=== PATIENT | female | born 1955 | race African-American/Black ===

== ENCOUNTER 2016-10-21 20:13 | Observation (INO) | payer SELFPAY ==
[~2016-10-21 20:13] MED LIST: AMLO2.5T PO; GLUCTAB PO; MELO15 PO; METH750T2 PO; TOPR100T15 PO; ZOLO50TA PO
[2016-10-21 20:16] VITALS: BP 174/86; PULSE 74; RESP 16; TEMP 98.4; O2SAT 99
[2016-10-21 20:19] VITALS: BP 216/102
--- NOTE | 2016-10-21 21:31 | RADRPT ---
EXAM DATE/TIME: 10/21/2016 21:22 [facility] COMPARISON: No previous studies available for comparison. INDICATIONS : Dizziness, chest pain, and palpitations. MEDICAL HISTORY : None. SURGICAL HISTORY : Heart catheterization. ENCOUNTER: Initial ACUITY: 2 days PAIN SCORE: 3/10 LOCATION: Bilateral upper chest FINDINGS: A single view of the chest demonstrates the lungs to be symmetrically aerated without evidence of mas s, infiltrate or effusion. The cardiomediastinal contours are unremarkable. Osseous structures are intact. CONCLUSION: The lungs are clear. Gustavo Lucio MD on October 21, 2016 at 21:28 Board Certified Radiologist. This report was verified electronically.
[2016-10-21 21:33] LABS: AUTOMATED NEUTROPHIL # 8.8 TH/MM3 (1.8-7.7); BASOPHIL # 0.1 TH/MM3 (0-0.2); BASOPHIL % 0.5 % (0.0-2.0); EOSINOPHIL # 0.4 TH/MM3 (0-0.4); EOSINOPHIL % 2.6 % (0.0-4.0); HEMATOCRIT 39.5 % (35.0-46.0); HEMO FLAGS DIFF FINAL; LYMPH % 29.9 % (9.0-44.0); LYMPHOCYTE # 4.4 TH/MM3 (1.0-4.8); MEAN CELL VOLUME 82.3 FL (80.0-100.0); MEAN CORPUSCULAR HEMOGLOBIN 25.9 PG (27.0-34.0); MEAN CORPUSCULAR HGB CONC 31.4 % (32.0-36.0); MONO % 7.9 % (0.0-8.0); NEUT % 59.1 % (16.0-70.0); PLATELET COUNT 252 TH/MM3 (150-450); RED CELL DISTRIBUTION WIDTH 14.5 % (11.6-17.2); WHITE BLOOD COUNT 14.9 TH/MM3 (4.0-11.0)
--- NOTE | 2016-10-21 21:45 | PD ---
HPI Chief Complaint: Chest Pain Time Seen by Provider: 21:44 Travel History International Travel<30 days: No Contact w/Intl Traveler<30days: No Traveled to known affect area: No History of Present Illness HPI 61-year-old female with history of DM, HTN, HLD, anxiety presents to the ED for evaluation of intermittent left-sided chest pain, radiating to the left shoulder. The patient states this pain has awoken her from sleep several nights this week. She states that this was accompanied by diaphoresis. Each episode lasted approximately 10-20 minutes before resolving spontaneously. She denies accompanying shortness of breath nausea or vomiting. The patient states that she is having difficulties filling her prescriptions due to financial issues and this has caused increased anxiety over the last week as her medications decreased. She admits to perseverating about this issue during the course of the week. She underwent a heart catheter approximately 5 years ago but states that she was unable to follow up with the health therapist due to financial issues. PFSH Past Medical History Asthma: Yes (BY HX ) Anxiety: Yes Heart Rhythm Problems: Yes (PALPITATIONS) Cancer: No Cardiovascular Problems: Yes High Cholesterol: Yes (NEW ONSET NEW RX) Diabetes: Yes Diminished Hearing: No Endocrine: Yes Genitourinary: No Hepatitis: No Hiatal Hernia: No Hypertension: Yes Immune Disorder: Yes (not sure at this time pt is going to be tested for rheumatoid arthritis) Musculoskeletal: Yes (arthritis neck and back problems) Neurologic: No Psychiatric: Yes (pt has a rx for zoloft and takes it occasionally) Reproductive: Yes Respiratory: No Myocardial Infarction: No Thyroid Disease: No Menopausal: Yes : 5 Para: 3 Miscarriage: 0 : 2 Tubal Ligation: Yes Past Surgical History AICD: No Cardiac Surgery: Yes (CARDIAC CATH) Gynecologic Surgery: Yes (d and c tubal) Hysterectomy: Yes Joint Replacement: No Pacemaker: No Social History Alcohol Use: Yes (occasional) Tobacco Use: No Substance Use: No Allergies-Medications (Allergen,Severity, Reaction): Coded Allergies: Penicillin (Verified Allergy, Mild, 10/21/16) RASH Reported Meds & Prescriptions Reported Meds & Active Scripts Active Reported Zoloft (Sertraline HCl) 50 Mg Tab 50 Mg PO DAILY Clonazepam 0.5 Mg Tab 0.5 Mg PO BID Gabapentin 300 Mg Cap 300 Mg PO BID Amlodipine (Amlodipine Besylate) 5 Mg Tab 5 Mg PO DAILY Metoprolol Tartrate 50 Mg Tab 50 Mg PO BID Lisinopril 20 Mg Tab 20 Mg PO DAILY Meloxicam 15 Mg Tab 15 Mg PO DAILY Tramadol (Tramadol HCl) 50 Mg Tab 50 Mg PO Q4H PRN Metformin (Metformin HCl) 500 Mg Tab 500 Mg PO DAILY With a meal Review of Systems Except as stated in HPI: all other systems reviewed are Neg Physical Exam Narrative GENERAL: Well-nourished, well-developed obese black female in no acute distress. SKIN: Focused skin assessment warm/dry. HEAD: Normocephalic. EYES: No scleral icterus. No injection or drainage. NECK: Supple, trachea midline. No JVD or lymphadenopathy. CARDIOVASCULAR: Regular rate and rhythm without murmurs, gallops, or rubs. 2+ DP and radial pulses bilaterally. CHEST: Nontender throughout without deformity or crepitance. No retractions or use of accessory muscles. RESPIRATORY: Breath sounds clear and equal bilaterally. No accessory muscle use. GASTROINTESTINAL: Abdomen soft, non-tender, nondistended. Active bowel sounds. MUSCULOSKELETAL: No cyanosis, or edema. No tenderness to palpation over the left shoulder. Patient is ambulatory and moves 3 extremities spontaneously. BACK: Nontender without obvious deformity. No CVA tenderness. Data Data Last Documented VS Vital Signs Date Time Temp Pulse Resp B/P Pulse Ox O2 Delivery O2 Flow Rate FiO2 10/21/16 21:46 68 18 99 10/21/16 20:19 216/102 10/21/16 20:16 98.4 Orders Electrocardiogram (10/21/16 20:49) Complete Blood Count With Diff (10/21/16 20:49) Basic Metabolic Panel (Bmp) (10/21/16 20:49) Ckmb (Isoenzyme) Profile (10/21/16 20:49) Troponin I (10/21/16 20:49) Chest, Single Ap (10/21/16 20:49) CKMB (10/21/16 21:08) CKMB% (10/21/16 21:08) Labetalol Inj (Trandate Inj) (10/21/16 22:45) Place In Observation (10/21/16 22:43) Activity Bed Rest With Brp (10/21/16 22:43) Vital Signs (Adult) Q4H (10/21/16 22:43) Cardiac Rhythm .As Directed (10/21/16 22:43) Notify Dr: Other .PRN (10/21/16 22:43) Notify DrDestiny Parameters (10/21/16 22:43) Resp Oxygen Nasal Cannula (10/21/16 ) Ckmb (Isoenzyme) Profile (10/21/16 22:43) Ckmb (Isoenzyme) Profile (10/22/16 01:43) Troponin I (10/21/16 22:43) Troponin I (10/22/16 01:43) Electrocardiogram (10/21/16 22:43) Electrocardiogram (10/22/16 01:43) ^ Obtain (10/21/16 22:43) Sodium Chloride 0.9% Flush (Ns Flush) (10/21/16 22:45) Sodium Chloride 0.9% Flush (Ns Flush) (10/22/16 09:00) Toilet Products Molder / Telemetry STEFFANY.Q8H (10/21/16 22:43) Admit Order (Ed Use Only) (10/21/16 22:43) CKMB (10/22/16 03:02) CKMB% (10/22/16 03:02) Labs Laboratory Tests Test 10/21/16 21:08 White Blood Count 14.9 TH/MM3 Red Blood Count 4.80 MIL/MM3 Hemoglobin 12.4 GM/DL Hematocrit 39.5 % Mean Corpuscular Volume 82.3 FL Mean Corpuscular Hemoglobin 25.9 PG Mean Corpuscular Hemoglobin 31.4 % Concent Red Cell Distribution Width 14.5 % Platelet Count 252 TH/MM3 Mean Platelet Volume 9.4 FL Neutrophils (%) (Auto) 59.1 % Lymphocytes (%) (Auto) 29.9 % Monocytes (%) (Auto) 7.9 % Eosinophils (%) (Auto) 2.6 % Basophils (%) (Auto) 0.5 % Neutrophils # (Auto) 8.8 TH/MM3 Lymphocytes # (Auto) 4.4 TH/MM3 Monocytes # (Auto) 1.2 TH/MM3 Eosinophils # (Auto) 0.4 TH/MM3 Basophils # (Auto) 0.1 TH/MM3 CBC Comment DIFF FINAL Differential Comment Sodium Level 141 MEQ/L Potassium Level 3.5 MEQ/L Chloride Level 104 MEQ/L Carbon Dioxide Level 28.1 MEQ/L Anion Gap 9 MEQ/L Blood Urea Nitrogen 21 MG/DL Creatinine 1.00 MG/DL Estimat Glomerular Filtration 69 ML/MIN Rate Random Glucose 99 MG/DL Calcium Level 8.9 MG/DL Total Creatine Kinase 158 U/L Creatine Kinase MB 0.8 NG/ML Troponin I LESS THAN 0.02 NG/ML MDM Medical Decision Making Medical Screen Exam Complete: Yes Emergency Medical Condition: Yes Medical Record Reviewed: Yes Interpretation(s) EKG: Rate 70, sinus rhythm. CT interval 185, QRS interval 97, QTc 384. Normal axis. No ST changes. Reviewed by Dr. Diaz. Differential Diagnosis Atypical chest pain versus anxiety versus musculoskeletal pain versus hypertensive urgency versus angina versus other Narrative Course 61-year-old female with history of DM, HTN, HLD, anxiety presents to the ED for evaluation of intermittent left-sided chest pain, radiating to the left shoulder. The patient states this pain has awoken her from sleep several nights this week. She states that this was accompanied by diaphoresis. Each episode lasted approximately 10-20 minutes before resolving spontaneously. She denies accompanying shortness of breath nausea or vomiting. The patient states that she is having difficulties filling her prescriptions due to financial issues and this has caused increased anxiety over the last week as her medications decreased. She underwent a heart catheter approximately 5 years ago but states that she was unable to follow up with the health therapist due to financial issues. Vitals reviewed. BP 216/102 on presentation. Physical examination reveals a pleasant obese black female in no acute distress. Chest is clear to auscultation bilaterally. No tenderness to palpation of the precordium with a left shoulder. Abdomen soft, nontender. Equal pulses in the extremities. Patient was placed on continuous monitoring. IV was established. No concerning abnormalities of the CBC or BMP. Cardiac enzymes negative 2. Checks x-ray clear per radiology read. EKG as above. Discussed the case with Dr. Diaz and the patient. I feel that observation admission to the chest pain center is appropriate for this patient with atypical chest pain. Please see [facility] notes for disposition. Diagnosis Primary Impression: Atypical chest pain Caitlin Beyer Oct 21, 2016 21:45
[2016-10-21] MEDS ORDERED: METO50TA PO (21:53)
[2016-10-21] MEDS ORDERED: AMLO5TAB2 PO (21:53)
[2016-10-21] MEDS ORDERED: CLON0.5T PO (21:53)
[2016-10-21] MEDS ORDERED: LISI-515 PO (21:53)
[2016-10-21] MEDS ORDERED: MELO-1 PO (21:53)
[2016-10-21] MEDS ORDERED: ZOLO50TA PO (21:53)
[2016-10-21] MEDS ORDERED: TRAM50TA PO (21:53)
[2016-10-21] MEDS ORDERED: METF500T PO (21:53)
[2016-10-21] MEDS ORDERED: GABA300C5 PO (21:53)
[2016-10-21 21:56] LABS: ANION GAP 9 MEQ/L (5-15); BICARBONATE 28.1 MEQ/L (21.0-32.0); BLOOD UREA NITROGEN 21 MG/DL (7-18); CHLORIDE 104 MEQ/L (98-107); GLOMERULAR FILTRATION RATE 69 ML/MIN (>89); POTASSIUM 3.5 MEQ/L (3.5-5.1); SODIUM (NA) 141 MEQ/L (136-145)
[2016-10-21 22:01] LABS: CREATINE KINASE 158 U/L (26-192)
[2016-10-21 22:14] LABS: CKMB 0.8 NG/ML (0.5-3.6)
[2016-10-21] MEDS ORDERED: SODIUM CHLORIDE 0.9% FLUSH 10 ML FLUSH IV FLUSH PRN (22:45)
[2016-10-21] MEDS ORDERED: LABETALOL HCL 100 MG/20 ML VIAL IV PUSH ONE (22:45)
[2016-10-21 23:14] VITALS: BP 174/73
[2016-10-21 23:27] LABS: CREATINE KINASE 148 U/L (26-192)
[2016-10-21 23:43] VITALS: BP 142/77; PULSE 75; RESP 18; O2SAT 98
[2016-10-22 00:40] VITALS: BP 140/71; PULSE 71; RESP 18; TEMP 97.8; O2SAT 97
[2016-10-22 00:41] VITALS: PULSE 70
[2016-10-22 03:01] VITALS: BP 139/80; PULSE 81; RESP 18; TEMP 97.7; O2SAT 97
[2016-10-22 04:09] LABS: CREATINE KINASE 129 U/L (26-192)
[2016-10-22 04:21] LABS: CKMB 0.7 NG/ML (0.5-3.6)
[2016-10-22 07:41] VITALS: BP 134/71; PULSE 72; RESP 20; TEMP 97.6; O2SAT 94
[2016-10-22] MEDS ORDERED: DEXTROSE 50% IN WATER 50 ML VIAL(D50) IV PRN (08:00)
[2016-10-22] MEDS ORDERED: GLUCAGON 1 MG/ML VIAL IM/SQ PRN (08:00)
--- NOTE | 2016-10-22 08:22 | HHI.HP ---
[facility] Primary Care Physician Abdelrahman Kelly DO Chief Complaint Chest pain History of Present Illness This is a 61-year-old female that presents to the ED via private vehicle complaining of 2 days of intermittent chest discomfort. She states that 2 nights ago she developed a pressure and points substernal region the last about 15 minutes. She had no associated shortness red nausea or diaphoresis. She went back to sleep. Then yesterday she developed another discomfort very similar the last about 3-4 hours. She states it went away after getting nitroglycerin in the emergency department. She states she's had episodes like this several times in the past. She states at one episode she had a heart catheterization. I reviewed the records. At that time she was following Dr. Luciano, she had an abnormal stress test and was having recurrent chest pain and had a heart catheterization in 2010. RCA had 10-20% stenosis. LAD had minor luminal irregularities. Left main and left circumflex were free of disease. EF was 55%. Patient is hypertension diabetes and history of mild CAD. Also history of hyperlipidemia but did not tolerate simvastatin well. Her primary care physician has not replaced it with any other medication. Denies recent illness. Denies fevers or chills. Review of Systems General: Patient denies fevers, chills recent, and recent travel. HEENT: Patient denies headache, sore throat, difficulty swallowing. Cardiovascular: Has the chest discomfort as mentioned above. Denies sensation of heart beating rapidly or irregularly. No syncope. Denies diaphoresis. Respiratory: Denies shortness of breath or inspirational chest discomfort. Denies coughing wheezing or hemoptysis. GI: Patient denies nausea, vomiting, diarrhea, abdominal pain, bloody stools. Musculoskeletal: Patient denies joint pain or edema. Denies calf pain or edema. She has noted over the last 5 days intermittent swelling in her ankles when she is on her feet for a long period time. States there is no edema at this time. Neurovascular: Patient denies numbness, tingling, weakness in extremities. Denies headache. Endocrine: Denies polyuria and polydipsia. Hematologic: Denies easy bruising. Skin: Denies rash or itching. Past Family Social History Allergies: Coded Allergies: Penicillin (Verified Allergy, Mild, 10/21/16) RASH Past Medical History Hypertension, diabetes, hyperlipidemia, mild CAD via heart catheterization 2010. Past Surgical History Heart catheterization without intervention. D&C. Hysterectomy. Reported Medications Reported Meds & Active Scripts Active Reported Zoloft (Sertraline HCl) 50 Mg Tab 50 Mg PO DAILY Clonazepam 0.5 Mg Tab 0.5 Mg PO BID Gabapentin 300 Mg Cap 300 Mg PO BID Amlodipine (Amlodipine Besylate) 5 Mg Tab 5 Mg PO DAILY Metoprolol Tartrate 50 Mg Tab 50 Mg PO DAILY Lisinopril 20 Mg Tab 20 Mg PO DAILY Meloxicam 15 Mg Tab 15 Mg PO DAILY Tramadol (Tramadol HCl) 50 Mg Tab 50 Mg PO Q4H PRN Metformin (Metformin HCl) 500 Mg Tab 500 Mg PO DAILY With a meal Active Ordered Medications Current Medications Medications (Trade) Dose Ordered Sig/Emelina Route Start Time Stop Time Status Last Admin (NS Flush) 2 ml UNSCH PRN IV FLUSH 10/21/16 22:45 (NS Flush) 2 ml BID IV FLUSH 10/22/16 09:00 10/22/16 08:11 (Norvasc) 5 mg DAILY PO 10/22/16 09:00 UNV (KlonoPIN) 0.5 mg BID PO 10/22/16 09:00 UNV (Neurontin) 300 mg BID PO 10/22/16 09:00 UNV (Prinivil) 20 mg DAILY PO 10/22/16 09:00 UNV (Zoloft) 50 mg DAILY PO 10/22/16 09:00 UNV (D50w (Vial) Inj) 25 ml UNSCH PRN IV 10/22/16 08:00 UNV (Glucagon Inj) 1 mg UNSCH PRN IM/SQ 10/22/16 08:00 UNV Family History There is family history of CAD. Social History Patient has not been a smoker. Denies illicit drugs. Has occasional alcohol. Physical Exam Vital Signs Vital Signs Date Time Temp Pulse Resp B/P Pulse Ox O2 Delivery O2 Flow Rate FiO2 10/22/16 07:41 97.6 72 20 134/71 94 10/22/16 07:23 21 10/22/16 03:01 97.7 81 18 139/80 97 10/22/16 00:41 70 10/22/16 00:41 70 10/22/16 00:40 97.8 71 18 140/71 97 10/21/16 23:43 75 18 142/77 98 10/21/16 23:14 174/73 10/21/16 21:46 68 18 99 10/21/16 20:19 216/102 10/21/16 20:16 98.4 74 16 174/86 99 Physical Exam GENERAL: This is a well-nourished, well-developed patient, in no apparent distress. Patient speaks in clear complete sentences. Patient is pleasant. HEENT: Head is atraumatic and normocephalic. Neck is supple without lymphadenopathy and trachea is midline. No JVD or carotid bruits. CARDIOVASCULAR: Regular rate and rhythm without murmurs, gallops, or rubs. RESPIRATORY: Clear to auscultation. Breath sounds equal bilaterally. No wheezes , rales, or rhonchi. Chest wall is nontender. No use of accessory muscles. GASTROINTESTINAL: Abdomen is nontender, nondistended. Abdomen soft. No obvious pulsatile mass or bruit. No CVA tenderness. Strong femoral pulses bilaterally. Normal bowel sounds in all quadrants. MUSCULOSKELETAL: Patient is moving upper and lower extremities freely. No calf tenderness or edema, no Homans sign. Strong pulses in upper and lower extremities. NEUROLOGICAL: Patient is alert and oriented. Cranial nerves 2-12 are grossly intact. No focal deficits and speech is clear. SKIN: No rash and turgor is normal. Laboratory Laboratory Tests Test 10/21/16 10/21/16 10/22/16 21:08 23:04 03:02 White Blood Count 14.9 Red Blood Count 4.80 Hemoglobin 12.4 Hematocrit 39.5 Mean Corpuscular Volume 82.3 Mean Corpuscular Hemoglobin 25.9 Mean Corpuscular Hemoglobin 31.4 Concent Red Cell Distribution Width 14.5 Platelet Count 252 Mean Platelet Volume 9.4 Neutrophils (%) (Auto) 59.1 Lymphocytes (%) (Auto) 29.9 Monocytes (%) (Auto) 7.9 Eosinophils (%) (Auto) 2.6 Basophils (%) (Auto) 0.5 Neutrophils # (Auto) 8.8 Lymphocytes # (Auto) 4.4 Monocytes # (Auto) 1.2 Eosinophils # (Auto) 0.4 Basophils # (Auto) 0.1 CBC Comment DIFF FINAL Differential Comment Sodium Level 141 Potassium Level 3.5 Chloride Level 104 Carbon Dioxide Level 28.1 Anion Gap 9 Blood Urea Nitrogen 21 Creatinine 1.00 Estimat Glomerular Filtration 69 Rate Random Glucose 99 Calcium Level 8.9 Total Creatine Kinase 158 148 129 Creatine Kinase MB 0.8 0.7 Troponin I LESS THAN 0.02 LESS THAN 0.02 LESS THAN 0.02 Result Diagram: 10/21/16210710/21/162107 Imaging Last 48 hours Impressions Chest X-Ray 10/21/162048 Signed Impressions: Service Date/Time: Friday, October 21, 2016 21:22 - CONCLUSION: The lungs are clear. Gustavo Lucio MD Course EKGs have sinus rhythm with nonspecific anterolateral T-wave changes. Assessment and Plan Assessment and Plan * Chest pain: Patient has had serial cardiac enzymes and EKGs for ruling out purposes. She has also been seen by Dr. Roberto Pace of cardiology in the chest pain center and will undergo a Lexiscan. She'll likely be discharged home if her stress test were to be nonischemic with instructions to follow-up with her primary care physician. * Hypertension: Patient stated that she ran out of her blood pressure medicines. She'll be restarted on his and given prescriptions for the same. * Diabetes: Hold home medications. We'll cover with sliding scale coverage. Resume medication at discharge. She is follow diabetic diet. * Hyperlipidemia: Patient when he discussed with her primary care physician to restart medication as she tolerates. Patient is stable at this time. She is agreeable to this plan. Raymon Cole Oct 22, 2016 08:22
[2016-10-22] MEDS ORDERED: GABAPENTIN 300 MG CAP PO SCH (09:00)
[2016-10-22] MEDS ORDERED: clonazePAM 0.5 MG TAB PO SCH (09:00)
[2016-10-22] MEDS ORDERED: LISINOPRIL 20 MG TAB PO SCH (09:00)
[2016-10-22] MEDS ORDERED: amLODIPine BESYLATE 5 MG TAB PO SCH (09:00)
[2016-10-22] MEDS ORDERED: SERTRALINE HCL 50 MG TAB PO SCH (09:00)
[2016-10-22] MEDS ORDERED: SODIUM CHLORIDE 0.9% FLUSH 10 ML FLUSH IV FLUSH SCH (09:00)
[2016-10-22] MEDS ORDERED: REGADENOSON INJ 0.4 MG/5 ML SYR ONE (09:27)
[2016-10-22] MEDS ORDERED: AMINOPHYLLINE INJ 250 MG/10 ML VIAL ONE (09:42)
[2016-10-22] MEDS ORDERED: INSULIN ASPART SUPPLEMENTAL SCALE SQ SCH (11:00)
[2016-10-22 11:27] VITALS: BP 162/82; PULSE 77; RESP 17; TEMP 98.1; O2SAT 95
--- NOTE | 2016-10-22 11:48 | RADRPT ---
EXAM DATE/TIME: 10/22/2016 08:35 [facility] COMPARISON: No previous studies available for comparison. INDICATIONS : Left sided chest pain radiating to left shoulder. Cardiac cath, palpitations and asthma. Angina. DOSE: 35.0 mCi Tc99m Myoview at stress. 11.0 mCi Tc99m Myoview at rest. 0.4 mg Lexiscan STRESS SYMPTOMS: Chest pain, dyspnea, headached , and neck pressure. MEDICATIONS: 1.) 100 mg Aminophylline IV EJECTION FRACTION: > 70% MEDICAL HISTORY : Diabetes mellitus type 2. Hypertension. Hypercholesterolemia. SURGICAL HISTORY : Tubal ligation. Hysterectomy. ENCOUNTER: Initial ACUITY: 1 day PAIN SCALE: 4/10 LOCATION: Left chest TECHNIQUE: The patient underwent pharmacologic stress with infusion of prescribed dose. Continuous ECG tracing was monitored during stress. Gated SPECT imaging was performed after stress and conventional SPECT i maging was performed at rest. The examination was performed on a SPECT/CT scanner, both attenuation and non-corrected datasets were reviewed. FINDINGS: DISTRIBUTION: The maximum perfused segment at stress is in the septal wall. PERFUSION STUDY: The pattern of perfusion at stress shows fixed diminished perfusion to the upper anterior and lower i nferior kendall with 20-30% redistribution in the regions of the anteroseptal wall. Similar redistribut ion is identified in the inferior and inferolateral wall. No note, there is more bowel activity ident ified on the rest images which could affect the apparent myocardial activity in this region. GATED STUDY: There is intact wall motion and thickening without hypokinetic or dyskinetic segments. CONCLUSION: 1. There are areas of fixed diminished perfusion characteristic of an old infarct in the high anterio r and low inferior kendall. 2. However, there is 20-30% redistribution in segments of the inferior and inferolateral as well as t he anterolateral kendall concerning for multi-territory, briana-infarct ischemia. 3. However, wall motion appears to be preserved throughout with an estimated ejection fraction of gre ater than 70% RISK CATEGORY: Intermediate (1-3% Annual Mortality Rate) Dank Johnson MD on October 22, 2016 at 11:39 Board Certified Radiologist. This report was verified electronically.
[2016-10-22 12:01] VITALS: PULSE 72
[2016-10-22] MEDS ORDERED: METOPROLOL TARTRATE 50 MG TAB PO SCH (12:15)
[2016-10-22] MEDS ORDERED: SODIUM CHLOR 0.9% 1000 ML INJ 1,000 ML IV SCH (12:33)
[2016-10-22] MEDS ORDERED: EZETIMIBE 10 MG TAB PO SCH (12:45)
[2016-10-22] MEDS ORDERED: ASPIRIN 325 MG TAB PO SCH (13:09)
[2016-10-22] MEDS ORDERED: HEPARIN-NS/PF INJ 500 ML ONE (14:23)
[2016-10-22] MEDS ORDERED: MIDAZOLAM HCL 2 MG/2 ML VIAL ONE ×2 (14:26→15:16)
--- NOTE | 2016-10-22 15:03 | EKG ---
Date Performed: 10/21/2016 Time Performed: 23:15:05 PTAGE: 61 years EKG: Sinus rhythm VOLTAGE CRITERIA FOR LVH NONSPECIFIC ST & T-WAVE ABNORMALITY ABNORMAL ECG PREVIOUS TRACING : 04/16/2013 10.33 Since previous tracing, no significant change noted DOCTOR: Roberto Pace Interpretating Date/Time 10/22/2016 15:01:06
--- NOTE | 2016-10-22 15:03 | EKG ---
Date Performed: 10/22/2016 Time Performed: 03:46:35 PTAGE: 61 years EKG: Sinus rhythm VOLTAGE CRITERIA FOR LVH ST DEVIATION AND MODERATE T-WAVE ABNORMALITY, CONSIDER ANTEROLATERAL ISCHEM IA ABNORMAL ECG PREVIOUS TRACING : 10/21/2016 23.15 Since previous tracing, no significant change noted DOCTOR: Roberto Pace Interpretating Date/Time 10/22/2016 15:00:55
--- NOTE | 2016-10-22 15:03 | EKG ---
Date Performed: 10/21/2016 Time Performed: 20:56:58 PTAGE: 61 years EKG: Sinus rhythm VOLTAGE CRITERIA FOR LVH NONSPECIFIC ST & T-WAVE ABNORMALITY ABNORMAL ECG NO PREVIOUS TRACING DOCTOR: Roberto Pace Interpretating Date/Time 10/22/2016 15:01:14
--- NOTE | 2016-10-22 15:04 | TR ---
Date Performed: 10/22/2016 Time Performed: 09:14:53 DOCTOR: Roberto Pace DRUG LIST: CLINICAL HISTORY: REASON FOR TEST: Angina REASON FOR ENDING: OBSERVATION: CONCLUSION: Lexiscan stress test was performed under standard four minute protocol. Radionuclid e was injected one minute prior to ending the test. No electrocardiographic abormalities were present to suggest ischemia. Nuclear imaging and interpretation are pending. COMMENTS:
--- NOTE | 2016-10-22 15:08 | MB ---
cc: ANA MURPHY DATE OF CONSULTATION: 10/22/2016 HISTORY OF PRESENT ILLNESS Ms. Kim is a very pleasant 71-year-old black female with a history of substernal chest discomfort radiating into the left shoulder. This has been occurring with and without exertion for a while but worse over the last two days at night but also during the day. She had a heart catheterization about six years ago which showed mild coronary disease. The patient has multiple risk factors for coronary artery disease. She underwent a nuclear myocardial perfusion study which showed anterior and low inferior infarct with significant redistribution consistent with briana-infarct ischemia in both territories. Ejection fraction was calculated at 70%. PAST MEDICAL HISTORY 1. Hypertension. 2. Diabetes mellitus. 3. Coronary artery disease as above. 4. Dyslipidemia. She did not tolerate simvastatin in the past. PAST SURGICAL HISTORY 1. D&C. 2. Hysterectomy. ALLERGIES PENICILLIN. MEDICATIONS 1. Metformin. 2. Tramadol. 3. Meloxicam. 4. Lisinopril. 5. Metoprolol. 6. Amlodipine. 7. Gabapentin. 8. Clonazepam. 9. Zoloft. SOCIAL HISTORY The patient does not smoke, does not drink alcohol. FAMILY HISTORY Positive for heart disease. REVIEW OF SYSTEMS Otherwise negative. PHYSICAL EXAMINATION VITAL SIGNS: Blood pressure 162/82, pulse 72 and regular. HEENT: Negative. NECK: 2+ carotid upstrokes. No bruits. LUNGS: Clear. HEART: Regular with no murmur or gallop. ABDOMEN: Soft. No bruit. EXTREMITIES: Without edema. 2+ distal pulses. NEUROLOGIC: Grossly nonfocal. EKG EKG was reviewed and showed normal sinus rhythm with normal axis and interval, nonspecific ST-T changes. LABORATORY Hemoglobin 12.4. Potassium 3.5. Creatinine 1.0. Troponin negative x3. DIAGNOSIS 1. Unstable angina. 2. Abnormal nuclear myocardial perfusion study. 3. Diabetes mellitus. 4. Hypertension. 5. Dyslipidemia. 6. Coronary artery disease. DISPOSITION Ms. Kim will undergo cardiac catheterization and coronary intervention if necessary today. She understands the risks and benefits and wishes to proceed. Will continue aggressive modification of the patient's cardiac risk factors. I will see her back for follow-up in our office after discharge. MD CATERINA Zuñiga /1:00 PM /2:49 PM [facility]
[2016-10-22] MEDS ORDERED: IOHEXOL 350 MG/ML 100 ML BTL (for RAD DIAG) OTHER ONE (15:30)
[2016-10-22] MEDS ORDERED: LISI-515 PO (17:20)
[2016-10-22] MEDS ORDERED: ASPI81CH CHEW (17:20)
[2016-10-22] MEDS ORDERED: METO50TA PO (17:20)
[2016-10-22] MEDS ORDERED: PANT20TA2 PO (17:20)
[2016-10-22] MEDS ORDERED: AMLO5TAB2 PO (17:20)
[2016-10-22] MEDS ORDERED: amLODIPine BESYLATE 5 MG TAB PO ONE (18:45)
[2016-10-22] MEDS ORDERED: METOPROLOL TARTRATE 50 MG TAB PO ONE (18:45)
--- NOTE | 2016-10-23 22:33 | MA ---
cc: ANA MURPHY DATE October 22, 2016 INDICATION Unstable angina, abnormal myocardial perfusion study, intermediate risk, class III angina. PROCEDURE PERFORMED 1. Retrograde left heart catheterization with left ventriculography and selective coronary angiography. 2. Moderate sedation. ACCESS SITE Right femoral artery. EQUIPMENT USED 5 Slovak pigtail catheter, 5 Slovak JL4 and 3DRC coronary artery catheters. MEDICATIONS 1. Versed. 2. IV Fentanyl. CONTRAST Omnipaque 100 cc. COMPLICATIONS None. BLOOD LOSS Less than 10 cc. METHOD OF HEMOSTASIS Manual compression. RESULTS HEMODYNAMICS Heart rate 67 beats per minute Left ventricular end-diastolic pressure 3 mmHg Left ventricle 110/3. Aorta 110/70/90. LEFT VENTRICULOGRAPHY Ejection fraction 65%. Wall motion normal. No mitral regurgitation. CORONARY ANGIOGRAPHY Left main coronary artery patent. Left anterior descending artery patent. D-1 patent. Left circumflex artery patent. OM-1 patent. OM-2 patent. Ramus intermedius patent. Right coronary artery is dominant and patent. PDA patent. PLV patent. DIAGNOSES 1. Widely patent coronary arteries. 2. Preserved left ventricular systolic function. DISPOSITION Ms. Kim can be reassured about her cardiac statis. Her study revealed widely patent coronary arteries and preserved left ventricular systolic function. She can be discharged home later today if stable. I recommend to continue aggressive modification of her cardiac risk factors. MD CAL Zuñiga/KK /3:53 PM /10:13 PM [facility]
== END 2016-10-22 20:05 | disposition home or self-care (01) ==
LOC: NEPC 20:13 → NEDA 22:46 → NEPFCDU 10-22 00:29 → HCIS 10-22 15:31
PROVIDERS: ADMIT Internal Medicine Interventional Cardiology; ATTEND Internal Medicine Interventional Cardiology
DX: I25.110 Atherosclerotic heart disease of native coronary artery with unstable angina pectoris (principal); R00.2 Palpitations; I10 Essential (primary) hypertension; F41.9 Anxiety disorder, unspecified; E78.5 Hyperlipidemia, unspecified; E11.9 Type 2 diabetes mellitus without complications; R61 Generalized hyperhidrosis; Z59.9 Problem related to housing and economic circumstances, unspecified
CPT/HCPCS: 71010; 78452; 80048; 82550; 82552; 82948; 84484; 85025; 93005; 93017; 93458; 99285; A9502; C1769; C1893; G0378; J0280; J1644; J2250; J2785; J3010; J7030; Q9967